=== PATIENT | male | born 1985 | race Caucasian/White ===

== ENCOUNTER 2017-05-27 11:28 | Inpatient (IN) | payer OTHER ==
[2017-05-27 12:37] VITALS: BMI 27.3
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
[2017-05-27] MEDS ORDERED: IBUPROFEN 400 MG TABLET (FP) PO PRN (16:05)
[2017-05-27] MEDS ORDERED: P-EPHED 60MG/TRIPROLIDI 2.5MG TABLET PO PRN (16:05)
[2017-05-27] MEDS ORDERED: MENTHOL/PHENOL 1 EACH UD MM PRN (16:05)
[2017-05-27] MEDS ORDERED: ACETAMINOPHEN 325 MG TABLET (FP) PO PRN (16:05)
[2017-05-27] MEDS ORDERED: MAGNESIUM HYDROX 2400MG/30ML ORAL SUSPENSION 30 ML CUP PO PRN (16:05)
[2017-05-27] MEDS ORDERED: LOPERAMIDE HCL 2 MG CAPSULE PO PRN (16:05)
[2017-05-27] MEDS ORDERED: NICOTINE POLACRILEX 4 MG GUM BC PRN (16:05)
[2017-05-27] MEDS ORDERED: guaiFENesin/D-METHORPHAN HB 10 ML UNIT-DOSE CUPS PO PRN (16:05)
[2017-05-27] MEDS ORDERED: hydrOXYzine PAMOATE 50 MG CAPSULE (FP) PO PRN (16:05)
[2017-05-27] MEDS ORDERED: MAGNESIUM CITRATE 300 ML BOTTLE PO PRN (16:05)
[2017-05-27] MEDS ORDERED: chlordiazePOXIDE HCL 25 MG CAPSULE PO ONE (16:45)
[2017-05-27] MEDS: chlordiazePOXIDE HCL 25 MG CAPSULE PO SCH ×2 (17:46→21:59)
[2017-05-27] MEDS ORDERED: METHADONE HCL 10 MG TABLET PO ONE (21:08)
--- NOTE | 2017-05-27 21:14 | PN ---
MARIA FERNANDA Progress Note Note: PATIENT IS ON METHADONE MAINTENANCE PROGRAM 60 MGS /DAY,LAST MEDICATED ON VERIFIED BY RN,METHADONE 60 MGS PO ORDERED NOW THEN 60 MGS PO DAILY AT 06.00 FROM 05/28/17
[2017-05-27] MEDS ORDERED: METHADONE 40 MG, METHADONE 20 MG PO ONE (21:30)
[2017-05-27] MEDS ORDERED: METHADONE HCL 10 MG TABLET ONE (21:48)
[2017-05-27] MEDS ORDERED: METHADONE HCL 40 MG DISPERSABLE TABLET ONE (21:48)
[2017-05-27] MEDS: THIAMINE HCL 100 MG TABLET (FP) PO SCH (21:58)
[2017-05-27 22:58] LABS: URINE APPEARANCE CLEAR; URINE BILIRUBIN NEGATIVE (NEGATIVE); URINE BLOOD NEGATIVE (NEGATIVE); URINE COLOR YELLOW; URINE GLUCOSE (UA) NEGATIVE (NEGATIVE); URINE KETONE NEGATIVE (NEGATIVE); URINE NITRITE NEGATIVE (NEGATIVE); URINE PROTEIN NEGATIVE (NEGATIVE); URINE UROBILINOGEN NEGATIVE mg/dL (0.2-1.0)
[2017-05-28] MEDS ORDERED: METHADONE HCL 10 MG TABLET ONE (05:16)
[2017-05-28] MEDS ORDERED: METHADONE HCL 40 MG DISPERSABLE TABLET ONE (05:16)
[2017-05-28] MEDS ORDERED: METHADONE HCL 10 MG TABLET PO SCH (06:00)
[2017-05-28] MEDS: chlordiazePOXIDE HCL 25 MG CAPSULE PO SCH ×4 (06:23→22:33)
[2017-05-28] MEDS: METHADONE 40 MG, METHADONE 20 MG PO SCH (07:08)
[2017-05-28 10:13] LABS: MCH 29.7 pg (25.7-33.7); MCHC 33.2 g/dl (32.0-35.9); MEAN CELL VOLUME 89.2 fl (80-96); PLATELET COUNT 178 K/MM3 (134-434); RDW 13.3 % (11.9-15.9); WHITE BLOOD COUNT 6.7 K/mm3 (4.0-10.0)
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
[2017-05-28] MEDS: NICOTINE 21 MG/24 HOURS TOPICAL PATCH TD SCH (10:30)
[2017-05-28] MEDS: SULFAMETHOXAZOLE/TRIMETHOPRIM 800MG/160MG D.S. TABLET PO SCH (10:32)
[2017-05-28] MEDS: HYDROCORTISONE 0.5% TOPICAL OINTMENT TUBE TP SCH ×2 (10:32→22:34)
[2017-05-28] MEDS: PRENATAL VITAMINS W/ FOLIC ACID TABLET (FP) PO SCH (10:32)
[2017-05-28 10:36] LABS: URINE LEUK ESTERASE Negative (NEGATIVE)
[2017-05-28 10:40] LABS: ALBUMIN 4.1 g/dl (3.4-5.0); ANION GAP 9 (8-16); BILIRUBIN,TOTAL 0.6 mg/dL (0.2-1.0); CALCIUM 8.7 mg/dL (8.5-10.1); CO2 28 mmol/L (21-32); CREATININE 0.9 mg/dL (0.7-1.3); GLUCOSE,RANDOM 80 mg/dL (74-106); SGOT/AST 17 U/L (15-37); SGPT/ALT 23 U/L (12-78); TOT PROT 7.3 g/dl (6.4-8.2)
[2017-05-28 10:41] LABS: ALK PHOS 49 U/L (45-117)
--- NOTE | 2017-05-28 10:45 | EKG ---
Test Reason : Blood Pressure : / mmHG Vent. Rate : 062 BPM Atrial Rate : 062 BPM P-R Int : 114 ms QRS Dur : 090 ms QT Int : 450 ms P-R-T Axes : 059 021 028 degrees QTc Int : 456 ms NORMAL SINUS RHYTHM NORMAL ECG NO PREVIOUS ECGS AVAILABLE Confirmed by CASPER MORRISON, LAYA ([id number]) on 05/28/2017 10:45:31 AM Referred By: Confirmed By:LAYA SHIRLEY MD
--- NOTE | 2017-05-28 13:15 | PN ---
S CIWA - CIWA Score Nausea/Vomitin-No Nausea/No Vomiting Muscle Tremors: 4-Moderate,w/Arms Extend Anxiety: 3 Agitation: 1-Slight > Activity Paroxysmal Sweats: 3 Orientation: 0-Oriented Tacttile Disturbances: 2-Mild Itch/Numbness/Burn Auditory Disturbances: 0-None Visual Disturbances: 2-Mild Sensitivity Headache: 3-Moderate CIWA-Ar Total Score: 18 BHS Progress Note (SOAP) Subjective: Tremors, Body Aches, H/A, Sweating, Interrupted sleep. Objective: PT. A & O X 3, OBSERVED AMBULATING ON UNIT. NO ACUTE DISTRESS. 05/28/17 13:14 Vital Signs Temperature 98.1 F 05/28/17 10:09 Pulse Rate 68 05/28/17 10:09 Respiratory Rate 18 05/28/17 10:09 Blood Pressure 94/53 05/28/17 10:09 O2 Sat by Pulse Oximetry (%) Laboratory Tests 05/27/17 05/28/17 05/28/17 19:00 06:00 06:00 WBC 6.7 RBC 4.49 Hgb 13.3 Hct 40.1 MCV 89.2 MCH 29.7 MCHC 33.2 RDW 13.3 Plt Count 178 MPV 11.0 Sodium 137 Potassium 4.2 Chloride 100 Carbon Dioxide 28 Anion Gap 9 BUN 17 Creatinine 0.9 Creat Clearance w eGFR > 60 Random Glucose 80 Calcium 8.7 Total Bilirubin 0.6 AST 17 ALT 23 Alkaline Phosphatase 49 Total Protein 7.3 Albumin 4.1 Urine Color Yellow Urine Appearance Clear Urine pH 6.0 Ur Specific [place] 1.020 Urine Protein Negative Urine Glucose (UA) Negative Urine Ketones Negative Urine Blood Negative Urine Nitrite Negative Urine Bilirubin Negative Urine Urobilinogen Negative Ur Leukocyte Esterase Negative RPR Titer 05/28/17 06:00 WBC RBC Hgb Hct MCV MCH MCHC RDW Plt Count MPV Sodium Potassium Chloride Carbon Dioxide Anion Gap BUN Creatinine Creat Clearance w eGFR Random Glucose Calcium Total Bilirubin AST ALT Alkaline Phosphatase Total Protein Albumin Urine Color Urine Appearance Urine pH Ur Specific [place] Urine Protein Urine Glucose (UA) Urine Ketones Urine Blood Urine Nitrite Urine Bilirubin Urine Urobilinogen Ur Leukocyte Esterase RPR Titer Nonreactive LABS NOTED. Assessment: 05/28/17 13:14 WITHDRAWAL SYMPTOMS. Plan: CONTINUE DETOX. INCREASE DAILY PO FLUID INTAKE.
[2017-05-28] MEDS: MAG HYDROX/AL HYDROX/SIMETH 30 ML UNIT-DOSE CUP PO PRN (20:08)
[2017-05-28] MEDS: THIAMINE HCL 100 MG TABLET (FP) PO SCH (22:33)
[2017-05-28] MEDS: diphenhydrAMINE HCL 50 MG CAPSULE PO PRN (22:34)
[2017-05-29] MEDS ORDERED: METHADONE HCL 10 MG TABLET ONE (03:53)
[2017-05-29] MEDS ORDERED: METHADONE HCL 40 MG DISPERSABLE TABLET ONE (03:54)
[2017-05-29] MEDS: METHADONE 40 MG, METHADONE 20 MG PO SCH (05:18)
[2017-05-29] MEDS: chlordiazePOXIDE HCL 25 MG CAPSULE PO SCH ×2 (05:18→11:04)
[2017-05-29] MEDS: MAG HYDROX/AL HYDROX/SIMETH 30 ML UNIT-DOSE CUP PO PRN (07:21)
[2017-05-29] MEDS: SULFAMETHOXAZOLE/TRIMETHOPRIM 800MG/160MG D.S. TABLET PO SCH (11:02)
[2017-05-29] MEDS: HYDROCORTISONE 0.5% TOPICAL OINTMENT TUBE TP SCH ×2 (11:03→22:30)
[2017-05-29] MEDS: NICOTINE 21 MG/24 HOURS TOPICAL PATCH TD SCH (11:03)
[2017-05-29] MEDS: PRENATAL VITAMINS W/ FOLIC ACID TABLET (FP) PO SCH (11:03)
[2017-05-29] MEDS: RANITIDINE HCL 150 MG TABLET (FP) PO SCH ×2 (11:04→22:30)
--- NOTE | 2017-05-29 12:47 | PN ---
S CIWA - CIWA Score Nausea/Vomitin Muscle Tremors: 4-Moderate,w/Arms Extend Anxiety: 3 Agitation: 2 Paroxysmal Sweats: No Perspiration Orientation: 2-Disoriented Date<2 days Tacttile Disturbances: 3-Moderate Itch/Numb/Burn Auditory Disturbances: 2-Mild Harshness/Frighten Visual Disturbances: 0-None Headache: 0-None Present CIWA-Ar Total Score: 18 BHS Progress Note (SOAP) Subjective: Tremors, Stomach Cramping, Interrupted sleep, Body Aches. Objective: PT. A & O X 2 (DISORIENTED ABOUT DAY / DATE). PT. OBSERVED AMBULATING ON UNIT. NO ACUTE DISTRESS. 05/29/17 12:45 Vital Signs Temperature 96 F L 05/29/17 09:53 Pulse Rate 77 05/29/17 09:53 Respiratory Rate 20 05/29/17 09:53 Blood Pressure 95/56 05/29/17 09:53 O2 Sat by Pulse Oximetry (%) Laboratory Tests 05/27/17 05/28/17 05/28/17 19:00 06:00 06:00 WBC 6.7 RBC 4.49 Hgb 13.3 Hct 40.1 MCV 89.2 MCH 29.7 MCHC 33.2 RDW 13.3 Plt Count 178 MPV 11.0 Sodium 137 Potassium 4.2 Chloride 100 Carbon Dioxide 28 Anion Gap 9 BUN 17 Creatinine 0.9 Creat Clearance w eGFR > 60 Random Glucose 80 Calcium 8.7 Total Bilirubin 0.6 AST 17 ALT 23 Alkaline Phosphatase 49 Total Protein 7.3 Albumin 4.1 Urine Color Yellow Urine Appearance Clear Urine pH 6.0 Ur Specific [place] 1.020 Urine Protein Negative Urine Glucose (UA) Negative Urine Ketones Negative Urine Blood Negative Urine Nitrite Negative Urine Bilirubin Negative Urine Urobilinogen Negative Ur Leukocyte Esterase Negative Valproic Acid RPR Titer 05/28/17 05/29/17 06:00 06:00 WBC RBC Hgb Hct MCV MCH MCHC RDW Plt Count MPV Sodium Potassium Chloride Carbon Dioxide Anion Gap BUN Creatinine Creat Clearance w eGFR Random Glucose Calcium Total Bilirubin AST ALT Alkaline Phosphatase Total Protein Albumin Urine Color Urine Appearance Urine pH Ur Specific [place] Urine Protein Urine Glucose (UA) Urine Ketones Urine Blood Urine Nitrite Urine Bilirubin Urine Urobilinogen Ur Leukocyte Esterase Valproic Acid < 3.000 L RPR Titer Nonreactive LABS NOTED. PSYCHAITRIST DR. Adrien OROZCO MD MADE AWARE OF DEPAKOTE LEVEL. 05/29/17 12:48 Assessment: 05/29/17 12:46 WITHDRAWAL SYMPTOMS. Plan: CONTINUE DETOX. INCREASE DAILY PO FLUID INTAKE.
[2017-05-29] MEDS: chlordiazePOXIDE 5 MG CAPSULE PO SCH ×2 (17:31→22:30)
[2017-05-29] MEDS: chlordiazePOXIDE HCL 25 MG CAPSULE PO PRN (19:49)
[2017-05-29] MEDS: THIAMINE HCL 100 MG TABLET (FP) PO SCH (22:30)
[2017-05-29] MEDS: diphenhydrAMINE HCL 50 MG CAPSULE PO PRN (22:31)
[2017-05-30] MEDS ORDERED: METHADONE HCL 40 MG DISPERSABLE TABLET ONE (03:17)
[2017-05-30] MEDS ORDERED: METHADONE HCL 10 MG TABLET ONE (03:17)
[2017-05-30] MEDS: chlordiazePOXIDE 5 MG CAPSULE PO SCH ×2 (06:10→10:40)
[2017-05-30] MEDS: METHADONE 40 MG, METHADONE 20 MG PO SCH (06:10)
[2017-05-30] MEDS: RANITIDINE HCL 150 MG TABLET (FP) PO SCH ×2 (09:51→22:39)
[2017-05-30] MEDS: HYDROCORTISONE 0.5% TOPICAL OINTMENT TUBE TP SCH ×2 (10:40→22:40)
[2017-05-30] MEDS: NICOTINE 21 MG/24 HOURS TOPICAL PATCH TD SCH (10:40)
[2017-05-30] MEDS: PRENATAL VITAMINS W/ FOLIC ACID TABLET (FP) PO SCH (10:40)
[2017-05-30] MEDS: SULFAMETHOXAZOLE/TRIMETHOPRIM 800MG/160MG D.S. TABLET PO SCH (11:02)
--- NOTE | 2017-05-30 12:31 | PN ---
BHS Progress Note (SOAP) Subjective: ANXIETY,SWEATS,SLIGHTLY DROWSY. Objective: 05/30/17 12:31 Vital Signs Temperature 97.0 F L 05/30/17 10:20 Pulse Rate 67 05/30/17 10:20 Respiratory Rate 18 05/30/17 10:20 Blood Pressure 124/73 05/30/17 10:20 O2 Sat by Pulse Oximetry (%) Laboratory Last Values WBC 6.7 K/mm3 (4.0-10.0) 05/28/17 06:00 RBC 4.49 M/mm3 (4.00-5.60) 05/28/17 06:00 Hgb 13.3 GM/dL (11.7-16.9) 05/28/17 06:00 Hct 40.1 % (35.4-49) 05/28/17 06:00 MCV 89.2 fl (80-96) 05/28/17 06:00 MCH 29.7 pg (25.7-33.7) 05/28/17 06:00 MCHC 33.2 g/dl (32.0-35.9) 05/28/17 06:00 RDW 13.3 % (11.9-15.9) 05/28/17 06:00 Plt Count 178 K/MM3 (134-434) 05/28/17 06:00 MPV 11.0 fl (7.5-11.1) 05/28/17 06:00 Sodium 137 mmol/L (136-145) 05/28/17 06:00 Potassium 4.2 mmol/L (3.5-5.1) 05/28/17 06:00 Chloride 100 mmol/L (98-107) 05/28/17 06:00 Carbon Dioxide 28 mmol/L (21-32) 05/28/17 06:00 Anion Gap 9 (8-16) 05/28/17 06:00 BUN 17 mg/dL (7-18) 05/28/17 06:00 Creatinine 0.9 mg/dL (0.7-1.3) 05/28/17 06:00 Creat Clearance w eGFR > 60 (>60) 05/28/17 06:00 Random Glucose 80 mg/dL (74-106) 05/28/17 06:00 Calcium 8.7 mg/dL (8.5-10.1) 05/28/17 06:00 Total Bilirubin 0.6 mg/dL (0.2-1.0) 05/28/17 06:00 AST 17 U/L (15-37) 05/28/17 06:00 ALT 23 U/L (12-78) 05/28/17 06:00 Alkaline Phosphatase 49 U/L (45-117) 05/28/17 06:00 Total Protein 7.3 g/dl (6.4-8.2) 05/28/17 06:00 Albumin 4.1 g/dl (3.4-5.0) 05/28/17 06:00 Urine Color Yellow 05/27/17 19:00 Urine Appearance Clear 05/27/17 19:00 Urine pH 6.0 (5.0-8.0) 05/27/17 19:00 Ur Specific [place] 1.020 (1.005-1.025) 05/27/17 19:00 Urine Protein Negative (NEGATIVE) 05/27/17 19:00 Urine Glucose (UA) Negative (NEGATIVE) 05/27/17 19:00 Urine Ketones Negative (NEGATIVE) 05/27/17 19:00 Urine Blood Negative (NEGATIVE) 05/27/17 19:00 Urine Nitrite Negative (NEGATIVE) 05/27/17 19:00 Urine Bilirubin Negative (NEGATIVE) 05/27/17 19:00 Urine Urobilinogen Negative mg/dL (0.2-1.0) 05/27/17 19:00 Ur Leukocyte Esterase Negative (NEGATIVE) 05/27/17 19:00 Valproic Acid < 3.000 ug/ml (50-100) L 05/29/17 06:00 RPR Titer Nonreactive (NONREACTIVE) 05/28/17 06:00 Assessment: 05/30/17 12:31 WITHDRAWAL SX Plan: CONTINUE DETOX
[2017-05-30] MEDS: chlordiazePOXIDE HCL 25 MG CAPSULE PO PRN (12:52)
[2017-05-30] MEDS: chlordiazePOXIDE HCL 10 MG CAPSULE PO SCH ×2 (17:11→22:40)
[2017-05-30] MEDS: MAG HYDROX/AL HYDROX/SIMETH 30 ML UNIT-DOSE CUP PO PRN (19:52)
[2017-05-30] MEDS ORDERED: QUEtiapine FUMARATE 100 MG TABLET (FP) PO SCH (22:00)
[2017-05-30] MEDS ORDERED: BENZTROPINE MESYLATE 1 MG TABLET (FP) PO SCH (22:00)
[2017-05-30] MEDS ORDERED: HALOPERIDOL 5 MG TABLET (FP) PO SCH (22:00)
[2017-05-30] MEDS: THIAMINE HCL 100 MG TABLET (FP) PO SCH (22:39)
[2017-05-30] MEDS: diphenhydrAMINE HCL 50 MG CAPSULE PO PRN (22:39)
[2017-05-31] MEDS ORDERED: METHADONE HCL 40 MG DISPERSABLE TABLET ONE (03:33)
[2017-05-31] MEDS ORDERED: METHADONE HCL 10 MG TABLET ONE (03:33)
[2017-05-31] MEDS: chlordiazePOXIDE HCL 10 MG CAPSULE PO SCH (06:18)
[2017-05-31] MEDS: METHADONE 40 MG, METHADONE 20 MG PO SCH (06:18)
[2017-05-31 07:07] VITALS: BP 98/53; PULSE 74; TEMP 97.7
--- NOTE | 2017-05-31 22:30 | DS ---
[facility] Detox Discharge Summary Admission Date: 05/27/17 Discharge Date: 05/31/17 - History Present History: Alcohol Dependence, Cocaine Dependence, Opioid Dependence, MMTP Additional Comments: PATIENT ADVISED TO CONSIDER LOCAL 12-STEP/ AA / NA OUTPATIENT PROGRAMS FOR AFTERCARE. PATIENT WAS DISCHARGED FROM DETOX UNIT IN STABLE MEDICAL CONDITION. Pertinent Past History: Depression, Bipolar Disorder, Schizophrenia, Insomnia, Nicotine Dependence. - Physical Exam Results Vital Signs: Vital Signs Temperature 97.7 F 05/31/17 07:07 Pulse Rate 74 05/31/17 07:07 Respiratory Rate 16 05/31/17 07:07 Blood Pressure 98/53 05/31/17 07:07 O2 Sat by Pulse Oximetry (%) Pertinent Admission Physical Exam Findings: WITHDRAWAL SYMPTOMS. Laboratory Tests 05/27/17 05/28/17 05/28/17 19:00 06:00 06:00 WBC 6.7 RBC 4.49 Hgb 13.3 Hct 40.1 MCV 89.2 MCH 29.7 MCHC 33.2 RDW 13.3 Plt Count 178 MPV 11.0 Sodium 137 Potassium 4.2 Chloride 100 Carbon Dioxide 28 Anion Gap 9 BUN 17 Creatinine 0.9 Creat Clearance w eGFR > 60 Random Glucose 80 Calcium 8.7 Total Bilirubin 0.6 AST 17 ALT 23 Alkaline Phosphatase 49 Total Protein 7.3 Albumin 4.1 Urine Color Yellow Urine Appearance Clear Urine pH 6.0 Ur Specific [place] 1.020 Urine Protein Negative Urine Glucose (UA) Negative Urine Ketones Negative Urine Blood Negative Urine Nitrite Negative Urine Bilirubin Negative Urine Urobilinogen Negative Ur Leukocyte Esterase Negative Valproic Acid RPR Titer 05/28/17 05/29/17 06:00 06:00 WBC RBC Hgb Hct MCV MCH MCHC RDW Plt Count MPV Sodium Potassium Chloride Carbon Dioxide Anion Gap BUN Creatinine Creat Clearance w eGFR Random Glucose Calcium Total Bilirubin AST ALT Alkaline Phosphatase Total Protein Albumin Urine Color Urine Appearance Urine pH Ur Specific [place] Urine Protein Urine Glucose (UA) Urine Ketones Urine Blood Urine Nitrite Urine Bilirubin Urine Urobilinogen Ur Leukocyte Esterase Valproic Acid < 3.000 L RPR Titer Nonreactive LABS NOTED. - Treatment Hospital Course: Detox Protocol Followed, Detoxed Safely, Responded well, Discharged Condition Good Patient has Accepted a Rehab Referral to: NO. PT ADVISED TO CONSIDER LOCAL 12- STEP/AA/NA SUPPORT GROUPS FOR AFTERCARE - Medication Discharge Medications: Ambulatory Orders Unobtainable [Unobtainable] 05/27/17 - Diagnosis (1) Alcohol dependence with uncomplicated withdrawal Status: Acute (2) Cocaine dependence Status: Acute Qualifiers: Substance use status: uncomplicated Qualified Code(s): F14.20 - Cocaine dependence, uncomplicated; F14.20 - Cocaine dependence, uncomplicated; F14.20 - Cocaine dependence, uncomplicated (3) Insomnia Status: Acute Qualifiers: Insomnia type: unspecified Qualified Code(s): G47.00 - Insomnia, unspecified; G47.00 - Insomnia, unspecified (4) Nicotine dependence Status: Chronic Qualifiers: Nicotine product type: cigarettes Substance use status: uncomplicated Qualified Code(s): F17.210 - Nicotine dependence, cigarettes, uncomplicated; F17.210 - Nicotine dependence, cigarettes, uncomplicated (5) Opioid dependence on agonist therapy Status: Chronic (6) Substance induced mood disorder Status: Acute (7) Bipolar disorder Status: Chronic Qualifiers: Active/Remission status: remission status unspecified Qualified Code (s): F31.9 - Bipolar disorder, unspecified; F31.9 - Bipolar disorder, unspecified; F31.9 - Bipolar disorder, unspecified; F31.9 - Bipolar disorder, unspecified (8) Methadone maintenance therapy patient Status: Chronic - AMA Did Patient Leave Against Medical Advice: No
== END 2017-05-31 09:56 | disposition home or self-care (01) | DRG 895 ==
LOC: YASAS 11:28 → Y3N 16:00
PROVIDERS: ADMIT Internal Medicine; ATTEND Internal Medicine
PROC: HZ42ZZZ Group Counseling for Substance Abuse Treatment, Cognitive-Behavioral (ICD-10-PCS; principal; 2017-05-27)
DX: F10.230 Alcohol dependence with withdrawal, uncomplicated (principal); F11.20 Opioid dependence, uncomplicated; F14.20 Cocaine dependence, uncomplicated; F17.210 Nicotine dependence, cigarettes, uncomplicated; F19.24 Other psychoactive substance dependence with psychoactive substance-induced mood disorder; F31.9 Bipolar disorder, unspecified; G47.00 Insomnia, unspecified; Z91.5 Personal history of self-harm; Z59.0 Homelessness
CPT/HCPCS: 36415; 80053; 80164; 81003; 85027; 86593; 93005; 93010

== ENCOUNTER 2022-11-21 18:32 | Inpatient (IN) | payer MEDICARE, OTHER ==
[2022-11-21 19:55] VITALS: BMI 28.1
[2022-11-21] MEDS ORDERED: MAGNESIUM HYDROX 2400MG/30ML ORAL SUSPENSION 30 ML CUP PO PRN (21:05)
[2022-11-21] MEDS ORDERED: IBUPROFEN 600 MG TABLET (FP) PO PRN (21:05)
[2022-11-21] MEDS ORDERED: LOPERAMIDE HCL 2 MG CAPSULE PO PRN (21:05)
[2022-11-21] MEDS ORDERED: DICYCLOMINE HCL 10 MG CAPSULE PO PRN (21:05)
[2022-11-21] MEDS ORDERED: IBUPROFEN 400 MG TABLET (FP) PO PRN (21:05)
[2022-11-21] MEDS ORDERED: ACETAMINOPHEN 325 MG TABLET (FP) PO PRN ×2 (21:05)
[2022-11-21] MEDS ORDERED: hydrOXYzine PAMOATE 25 MG CAPSULE (FP) PO PRN (21:05)
[2022-11-21] MEDS ORDERED: POLYETHYLENE GLYCOL (HEALTHYLAX) 3350 17 GM PACKET PO PRN (21:05)
[2022-11-21] MEDS ORDERED: NICOTINE POLACRILEX 2 MG GUM BUC PRN (21:05)
[2022-11-21] MEDS ORDERED: BENZONATATE 200 MG CAPSULE PO PRN (21:05)
[2022-11-21] MEDS ORDERED: MAG HYDROX/AL HYDROX/SIMETH 30 ML UNIT-DOSE CUP PO PRN (21:05)
[2022-11-21] MEDS ORDERED: NALOXONE HCL (KLOXXADO) 8 MG SPRAY NS PRN (21:05)
[2022-11-21] MEDS ORDERED: NALOXONE HCL 0.4 MG/ML VIAL IM PRN (21:05)
[2022-11-21] MEDS ORDERED: guaiFENesin 600 MG TABLET.ER (FP) PO PRN (21:05)
[2022-11-21] MEDS ORDERED: BENZOCAINE/MENTHOL (CHLORASEPTIC ) LOZENGE MM PRN (21:05)
[2022-11-21] MEDS ORDERED: ONDANSETRON *ODT* 4 MG TABLET SL PRN (21:05)
[2022-11-21] MEDS ORDERED: P-EPHED 60MG/TRIPROLIDI 2.5MG TABLET PO PRN (21:05)
[2022-11-21] MEDS ORDERED: BISMUTH SUBSALICYLATE 524 MG/30 ML PO PRN (21:05)
[2022-11-21] MEDS ORDERED: MELATONIN 5 MG TABLETS PO SCH (22:00)
[2022-11-21] MEDS: levETIRAcetam 500 MG TABLET (FP) PO SCH (22:37)
[2022-11-21] MEDS: THIAMINE HCL 100 MG TABLET (FP) PO SCH (22:38)
[2022-11-22] MEDS: METHOCARBAMOL 500 MG TABLET PO PRN ×2 (05:13→11:18)
[2022-11-22] MEDS ORDERED: HALOPERIDOL 5 MG TABLET PO PRN (10:05)
[2022-11-22] MEDS: PRENATAL VITAMINS W/ FOLIC ACID TABLET (FP) PO SCH (10:37)
[2022-11-22] MEDS: levETIRAcetam 500 MG TABLET (FP) PO SCH ×2 (10:37→22:20)
[2022-11-22] MEDS: diazePAM 5 MG TABLET PO PRN ×4 (10:37→22:23)
[2022-11-22] MEDS ORDERED: methaDONE HCL 10 MG TABLET (FOR DETOX USE ONLY) PO ONE (10:48)
[2022-11-22] MEDS ORDERED: cloNIDine HCL 0.1 MG TABLET PO PRN (10:48)
[2022-11-22] MEDS: SERTRALINE HCL 25 MG TABLET (FP) PO SCH (11:37)
[2022-11-22 11:40] LABS: HEMOGLOBIN 11.6 GM/dL (11.7-16.9); MCH 29.7 pg (25.7-33.7); MCHC 35.2 g/dl (32.0-35.9); MEAN CELL VOLUME 84.3 fl (80-96); MEAN PLT VOLUME 9.2 fl (7.5-11.1); PLATELET COUNT 187 10^3/uL (134-434); RBC 3.91 M/mm3 (4.00-5.60); RDW 12.9 % (11.9-15.9); WHITE BLOOD COUNT 4.8 K/mm3 (4.0-10.0)
[2022-11-22 12:12] LABS: CALCIUM 8.5 mg/dL (8.5-10.1)
[2022-11-22 12:13] LABS: ALBUMIN 3.5 g/dl (3.4-5.0); BLOOD UREA NITROGEN 20.2 mg/dL (7-18)
[2022-11-22 12:16] LABS: CREATININE 0.9 mg/dL (0.55-1.3)
[2022-11-22 12:17] LABS: BILIRUBIN,TOTAL 0.6 mg/dL (0.2-1); TOT PROT 6.5 g/dl (6.4-8.2)
[2022-11-22] MEDS: MELATONIN 5 MG TABLETS PO SCH (22:20)
[2022-11-22] MEDS: THIAMINE HCL 100 MG TABLET (FP) PO SCH (22:20)
[2022-11-22] MEDS: NICOTINE 10 MG CARTRIDGE (INHALER) IH PRN (22:21)
[2022-11-23] MEDS: diazePAM 5 MG TABLET PO PRN ×5 (06:07→22:27)
[2022-11-23] MEDS: METHOCARBAMOL 500 MG TABLET PO PRN (10:55)
[2022-11-23] MEDS: PRENATAL VITAMINS W/ FOLIC ACID TABLET (FP) PO SCH (10:55)
[2022-11-23] MEDS: SERTRALINE HCL 25 MG TABLET (FP) PO SCH (10:55)
[2022-11-23] MEDS: levETIRAcetam 500 MG TABLET (FP) PO SCH ×2 (10:55→22:24)
[2022-11-23] MEDS: NICOTINE 10 MG CARTRIDGE (INHALER) IH PRN (10:58)
[2022-11-23 21:18] VITALS: RESP 18
[2022-11-23] MEDS: THIAMINE HCL 100 MG TABLET (FP) PO SCH (22:24)
[2022-11-23] MEDS: MELATONIN 5 MG TABLETS PO SCH (22:25)
[2022-11-24] MEDS: diazePAM 5 MG TABLET PO PRN ×3 (02:30→10:32)
[2022-11-24 09:19] VITALS: BP 132/75; PULSE 80; TEMP 97.8
[2022-11-24] MEDS ORDERED: methaDONE HCL 10 MG TABLET (FOR DETOX USE ONLY) PO ONE (10:00)
[2022-11-24] MEDS: PRENATAL VITAMINS W/ FOLIC ACID TABLET (FP) PO SCH (10:08)
[2022-11-24] MEDS: levETIRAcetam 500 MG TABLET (FP) PO SCH (10:08)
[2022-11-24] MEDS: METHOCARBAMOL 500 MG TABLET PO PRN (10:08)
[2022-11-24] MEDS: SERTRALINE HCL 25 MG TABLET (FP) PO SCH (10:08)
[2022-11-24] MEDS: NICOTINE 10 MG CARTRIDGE (INHALER) IH PRN (10:32)
[2022-11-24] MEDS ORDERED: diazePAM 5 MG TABLET PO PRN (22:00)
[2022-11-26] MEDS ORDERED: methaDONE HCL 10 MG TABLET (FOR DETOX USE ONLY) PO ONE (10:00)
== END 2022-11-24 12:20 | disposition left against medical advice (07) | DRG 894 ==
LOC: YASAS 18:32 → Y6N 22:12
PROVIDERS: ADMIT Allergy & Immunology; ATTEND Surgery
PROC: HZ2ZZZZ Detoxification Services for Substance Abuse Treatment (ICD-10-PCS; principal; 2022-11-21)
DX: F11.23 Opioid dependence with withdrawal (principal); F19.282 Other psychoactive substance dependence with psychoactive substance-induced sleep disorder; F19.280 Other psychoactive substance dependence with psychoactive substance-induced anxiety disorder; F10.230 Alcohol dependence with withdrawal, uncomplicated; F17.210 Nicotine dependence, cigarettes, uncomplicated; F31.9 Bipolar disorder, unspecified; F43.10 Post-traumatic stress disorder, unspecified; G40.909 Epilepsy, unspecified, not intractable, without status epilepticus; Z62.810 Personal history of physical and sexual abuse in childhood; Z91.410 Personal history of adult physical and sexual abuse; Z59.00 Homelessness unspecified
CPT/HCPCS: 36415; 80053; 85027; 86780; C9803-CS; U0003; U0005

== ENCOUNTER 2023-07-15 18:13 | Inpatient (IN) | payer MEDICARE, OTHER ==
[2023-07-15 18:46] VITALS: BMI 29.0
[2023-07-15] MEDS ORDERED: ACETAMINOPHEN 325 MG TABLET (FP) PO PRN (20:50)
[2023-07-15] MEDS ORDERED: P-EPHED 60MG/TRIPROLIDI 2.5MG TABLET PO PRN (20:50)
[2023-07-15] MEDS ORDERED: LOPERAMIDE HCL 2 MG CAPSULE PO PRN (20:50)
[2023-07-15] MEDS ORDERED: NALOXONE HCL (KLOXXADO) 8 MG SPRAY NS PRN (20:50)
[2023-07-15] MEDS ORDERED: MAGNESIUM HYDROX 2400MG/30ML ORAL SUSPENSION 30 ML CUP PO PRN (20:50)
[2023-07-15] MEDS ORDERED: DICYCLOMINE HCL 10 MG CAPSULE PO PRN (20:50)
[2023-07-15] MEDS ORDERED: guaiFENesin 600 MG TABLET.ER (FP) PO PRN (20:50)
[2023-07-15] MEDS ORDERED: NALOXONE HCL 0.4 MG/ML VIAL IM PRN (20:50)
[2023-07-15] MEDS ORDERED: BENZOCAINE/MENTHOL (CHLORASEPTIC ) LOZENGE MM PRN (20:50)
[2023-07-15] MEDS ORDERED: METHOCARBAMOL 500 MG TABLET PO PRN (20:50)
[2023-07-15] MEDS ORDERED: NICOTINE POLACRILEX 2 MG GUM BUC PRN (20:50)
[2023-07-15] MEDS ORDERED: BISMUTH SUBSALICYLATE 524 MG/30 ML PO PRN (20:50)
[2023-07-15] MEDS ORDERED: POLYETHYLENE GLYCOL (HEALTHYLAX) 3350 17 GM PACKET PO PRN (20:50)
[2023-07-15] MEDS ORDERED: MAG HYDROX/AL HYDROX/SIMETH 30 ML UNIT-DOSE CUP PO PRN (20:50)
[2023-07-15] MEDS ORDERED: IBUPROFEN 400 MG TABLET (FP) PO PRN (20:50)
[2023-07-15] MEDS ORDERED: IBUPROFEN 600 MG TABLET (FP) PO PRN (20:50)
[2023-07-15] MEDS ORDERED: BENZONATATE 200 MG CAPSULE PO PRN (20:50)
[2023-07-15] MEDS: hydrOXYzine PAMOATE 25 MG CAPSULE (FP) PO PRN (22:05)
[2023-07-15] MEDS: THIAMINE HCL 100 MG TABLET (FP) PO SCH (22:05)
[2023-07-15] MEDS: levETIRAcetam 500 MG TABLET (FP) PO SCH (22:05)
[2023-07-15] MEDS: MELATONIN 5 MG TABLETS PO SCH (22:06)
[2023-07-16] MEDS ORDERED: PRENATAL VITAMINS W/ FOLIC ACID TABLET (FP) PO SCH (10:00)
[2023-07-16] MEDS: ONDANSETRON *ODT* 4 MG TABLET SL PRN ×2 (10:13→19:41)
[2023-07-16] MEDS: levETIRAcetam 500 MG TABLET (FP) PO SCH ×2 (10:13→22:17)
[2023-07-16] MEDS: hydrOXYzine PAMOATE 25 MG CAPSULE (FP) PO PRN (10:13)
[2023-07-16] MEDS ORDERED: methaDONE HCL 10 MG TABLET (FOR DETOX USE ONLY) PO ONE (10:45)
[2023-07-16] MEDS ORDERED: SERTRALINE HCL 50 MG TABLET (FP) PO SCH (10:45)
[2023-07-16 10:53] LABS: HEMATOCRIT 36.1 % (35.4-49); HEMOGLOBIN 12.4 GM/dL (11.7-16.9); MCHC 34.5 g/dl (32.0-35.9); MEAN CELL VOLUME 84.1 fl (80-96); MEAN PLT VOLUME 9.1 fl (7.5-11.1); PLATELET COUNT 234 10^3/uL (134-434); RBC 4.29 M/mm3 (4.00-5.60); RDW 12.8 % (11.9-15.9); WHITE BLOOD COUNT 5.6 K/mm3 (4.0-10.0)
[2023-07-16] MEDS ORDERED: diazePAM 5 MG TABLET PO PRN (10:57)
[2023-07-16] MEDS: diazePAM 5 MG TABLET PO SCH ×3 (11:32→23:10)
[2023-07-16 12:44] LABS: CHLORIDE 103 mmol/L (98-107); POTASSIUM 3.9 mmol/L (3.5-5.1); SODIUM 140 mmol/L (136-145)
[2023-07-16 12:51] LABS: ALBUMIN 3.6 g/dl (3.4-5.0); CALCIUM 8.4 mg/dL (8.5-10.1)
[2023-07-16 12:52] LABS: ANION GAP 7 mmol/L (4-13); BLOOD UREA NITROGEN 16.4 mg/dL (7-18); CO2 30 mmol/L (21-32); GLUCOSE,RANDOM 102 mg/dL (74-106)
[2023-07-16 12:53] LABS: CREATININE 0.8 mg/dL (0.55-1.3)
[2023-07-16 12:55] LABS: BILIRUBIN,TOTAL 0.2 mg/dL (0.2-1); SGOT/AST 18 U/L (15-37); TOT PROT 6.7 g/dl (6.4-8.2)
[2023-07-16 12:56] LABS: ALK PHOS 64 U/L (45-117)
[2023-07-16 14:03] LABS: SGPT/ALT 27 U/L (13-61)
[2023-07-16] MEDS ORDERED: QUEtiapine FUMARATE 100 MG TABLET (FP) PO SCH (22:00)
[2023-07-16] MEDS: MELATONIN 5 MG TABLETS PO SCH (23:10)
[2023-07-16] MEDS: THIAMINE HCL 100 MG TABLET (FP) PO SCH (23:11)
[2023-07-17] MEDS: diazePAM 5 MG TABLET PO SCH (05:56)
[2023-07-17 06:16] VITALS: RESP 18
[2023-07-17] MEDS ORDERED: ONDANSETRON *ODT* 4 MG TABLET SL ONE (08:53)
[2023-07-17 09:16] VITALS: BP 139/87; PULSE 62; TEMP 97.5
[2023-07-18] MEDS ORDERED: diazePAM 5 MG TABLET PO SCH (06:00)
[2023-07-18] MEDS ORDERED: methaDONE HCL 10 MG TABLET (FOR DETOX USE ONLY) PO ONE (10:00)
[2023-07-19] MEDS ORDERED: diazePAM 5 MG TABLET PO SCH (06:00)
[2023-07-20] MEDS ORDERED: diazePAM 5 MG TABLET PO ONE (06:00)
[2023-07-20] MEDS ORDERED: methaDONE HCL 10 MG TABLET (FOR DETOX USE ONLY) PO ONE (10:00)
== END 2023-07-17 10:05 | disposition left against medical advice (07) | DRG 894 ==
LOC: YASAS 18:13 → Y6N 21:47 → UNDOADMIN 21:47
PROVIDERS: ADMIT Allergy & Immunology; ATTEND Surgery
PROC: HZ2ZZZZ Detoxification Services for Substance Abuse Treatment (ICD-10-PCS; principal; 2023-07-15)
DX: F11.23 Opioid dependence with withdrawal (principal); F19.280 Other psychoactive substance dependence with psychoactive substance-induced anxiety disorder; F19.282 Other psychoactive substance dependence with psychoactive substance-induced sleep disorder; F13.230 Sedative, hypnotic or anxiolytic dependence with withdrawal, uncomplicated; F10.10 Alcohol abuse, uncomplicated; F17.210 Nicotine dependence, cigarettes, uncomplicated; F25.1 Schizoaffective disorder, depressive type; F31.9 Bipolar disorder, unspecified; G40.909 Epilepsy, unspecified, not intractable, without status epilepticus; Z62.810 Personal history of physical and sexual abuse in childhood; Z91.410 Personal history of adult physical and sexual abuse; Z86.69 Personal history of other diseases of the nervous system and sense organs
CPT/HCPCS: 36415; 80053; 80307; 85027; 86780; 87635; Q0162